=== PATIENT | female | born 1960 | race Caucasian/White ===

== ENCOUNTER → 2020-08-31 | Outpatient (CLI) | payer MEDICAID | END | disposition home or self-care (01) | LOC: LAB 10:30 | PROVIDERS: ATTEND Thoracic Surgery (Cardiothoracic Vascular Surgery) | DX: Z01.812 Encounter for preprocedural laboratory examination (principal); Z20.822 Contact with and (suspected) exposure to COVID-19 | CPT/HCPCS: 87426 ==

== ENCOUNTER 2020-09-03 05:26 | Inpatient (IN) | payer MEDICAID ==
[2020-09-03] VITALS (32 sets, daily range): BP systolic 0–122; BP diastolic 0–64
[~2020-09-03] VITALS: Ht 162.6 cm; Wt 80.7 kg
[2020-09-03 05:23] LABS: CLARITY URINE CLEAR (CLEAR); COLOR URINE DARK YELLOW (YELLOW); KETONES URINE NEGATIVE (NEGATIVE); LEUKOCYTE ESTERASE URINE 1+ (NEGATIVE); NITRITE URINE POSITIVE (NEGATIVE); OCCULT BLOOD URINE NEGATIVE (NEGATIVE); PH URINE 5.5 (4.5-8.0); PROTEIN URINE TRACE (NEGATIVE); SPECIFIC GRAVITY URINE 1.016 (1.005-1.030)
[2020-09-03] MEDS ORDERED: ACETAMINOPHEN 500MG TABLET ONE (05:51)
[2020-09-03] MEDS ORDERED: AMINOCAPROIC ACID 5,000 MG in SODIUM CHLORIDE 0.9% 230 ML IV PRN (06:00)
[2020-09-03] MEDS ORDERED: DOPAMINE 400 MG PREMIX 250 ML IV PRN (06:00)
[2020-09-03] MEDS ORDERED: CEFAZOLIN 2,000 MG in DEXT 5% WATER 100 ML IV PRN (06:00)
[2020-09-03] MEDS ORDERED: INSULIN REGULAR (DRIP) 100 UNITS in SODIUM CHLORIDE 0.9% 99 ML IV PRN (06:00)
[2020-09-03] MEDS ORDERED: EPINEPHRINE 5 MG in DEXT 5% WATER 245 ML IV PRN (06:00)
[2020-09-03] MEDS ORDERED: NOREPINEPHRINE 8 MG in DEXT 5% WATER 242 ML IV PRN (06:00)
[2020-09-03] MEDS ORDERED: DOBUTAMINE 250 MG PREMIX 250 ML IV PRN (06:00)
[2020-09-03] MEDS ORDERED: DEL NIDO ELECTROLYTE-S(PH 7.4) 1,000 ML IV PRN ×2 (06:00)
[2020-09-03] MEDS ORDERED: NICARDIPINE 40 MG/200 ML PREMIX 200 ML IV PRN (06:00)
[2020-09-03] MEDS ORDERED: POLYMYXIN B SULFATE 500000 UNITS/VIAL ONE ×2 (06:16→07:31)
[2020-09-03] MEDS ORDERED: THROMBIN (BOVINE) 5000 UNITS/VIAL TOP ONE ×2 (06:16→12:50)
[2020-09-03] MEDS ORDERED: HEPARIN 1000 UNITS/ML 10ML ONE ×3 (06:48→08:40)
[2020-09-03] MEDS ORDERED: LEVOFLOXACIN 500MG PREMIX 100 ML IV ONE (07:13)
[2020-09-03] MEDS ORDERED: ETOMIDATE 2MG/ML 10ML VIAL IV ONE (07:17)
[2020-09-03] MEDS ORDERED: FENTANYL CITRATE/PF 50MCG/ML 5ML VIAL ONE (07:18)
[2020-09-03] MEDS ORDERED: PROPOFOL 200MG/20ML VIAL IV ONE (07:19)
[2020-09-03] MEDS ORDERED: ROCURONIUM BROMIDE 10MG/ML VIAL 5ML IV ONE (07:20)
[2020-09-03] MEDS ORDERED: SODIUM CHLORIDE 0.9% 10ML VIAL ONE (07:21)
[2020-09-03] MEDS ORDERED: PHENYLEPHRINE HCL 10 MG/ML 1ML (IV VIAL) IV ONE ×3 (07:22→14:52)
[2020-09-03] MEDS ORDERED: LABETALOL HCL 5MG/ML VIAL 20ML IV ONE (07:28)
[2020-09-03] MEDS ORDERED: MIDAZOLAM HCL 2 MG/2 ML VIAL ONE ×2 (07:28→10:20)
[2020-09-03] MEDS ORDERED: VANCOMYCIN 1500MG in DEXTROSE 5% WATER 250ML IV NR (07:30)
[2020-09-03] MEDS ORDERED: LIDOCAINE HCL 2% 5ML SYRINGE IV ONE ×3 (07:43→13:02)
[2020-09-03] MEDS ORDERED: CALCIUM CHLORIDE 1GM/10ML SYR IV ONE ×2 (08:10→13:46)
[2020-09-03] MEDS ORDERED: MANNITOL 20% (20GM/100ML) BAG 500ML PREMIX IV ONE (08:10)
[2020-09-03] MEDS ORDERED: AMINOCAPROIC ACID 250 MG/ML 20ML VIAL ONE ×2 (08:10→09:08)
[2020-09-03] MEDS ORDERED: MAGNESIUM SULFATE 5GM/10ML VIAL IV ONE (08:10)
[2020-09-03] MEDS ORDERED: FUROSEMIDE 20MG/2ML VIAL ONE (08:10)
[2020-09-03] MEDS ORDERED: SODIUM BICARBONATE 8.4% 1 MEQ/ML 50ML SYR IV ONE ×2 (08:10→11:35)
[2020-09-03] MEDS ORDERED: ALBUMIN HUMAN 25GM/100ML (25%) IV ONE (08:10)
[2020-09-03] MEDS ORDERED: POTASSIUM CHLORIDE 40MEQ/20ML INJ IV ONE (08:10)
[2020-09-03] MEDS ORDERED: HEPARIN 10,000 UNITS/ML VIAL ONE (08:10)
[2020-09-03] MEDS ORDERED: MELA10TA2 PO (08:58)
[2020-09-03] MEDS ORDERED: TRIA1TAB92 PO (08:58)
[2020-09-03] MEDS ORDERED: HYDR-4350 PO (08:58)
[2020-09-03] MEDS ORDERED: AMLO5TAB88 PO (08:58)
[2020-09-03] MEDS ORDERED: PHEN95TA25 PO (08:58)
[2020-09-03] MEDS ORDERED: LEVO500T89 PO (08:58)
[2020-09-03] MEDS ORDERED: TRIAM/HCTZ PO (09:00)
[2020-09-03] MEDS ORDERED: VECURONIUM BROMIDE 10 MG/VIAL IV ONE (09:20)
[2020-09-03] MEDS ORDERED: ALBUMIN HUMAN 12.5G/250ML (5%) IV ONE ×2 (10:20→12:27)
[2020-09-03] MEDS ORDERED: POTASSIUM CHLORIDE 10MEQ IN WATER 50ML PREMIX IV ONE (10:20)
[2020-09-03] MEDS ORDERED: ESMOLOL HCL 10MG/ML 10ML VIAL IV ONE (10:20)
[2020-09-03] MEDS ORDERED: PROPOFOL 10MG/ML 100ML 100 ML IV ONE (11:36)
[2020-09-03] MEDS ORDERED: KCL 10MEQ/50ML PREMIX 100 ML IV PRN (11:45)
[2020-09-03] MEDS ORDERED: DEXTROSE 50% WATER 50ML SYRINGE IV PRN ×2 (11:45)
[2020-09-03] MEDS ORDERED: BLOOD SUGAR DIAGNOSTIC STRIP TEST SCH (11:45)
[2020-09-03] MEDS ORDERED: KCL 10MEQ/50ML PREMIX 150 ML IV PRN (11:45)
[2020-09-03] MEDS ORDERED: DEL NIDO ELECTROLYTE-S(PH 7.4) 1,000 ML IV SCH (12:00)
[2020-09-03] MEDS ORDERED: AMIODARONE HCL 50MG/ML 3ML VIAL IV ONE (13:01)
[2020-09-03] MEDS ORDERED: PROTAMINE SULFATE 10MG/ML VIAL 25ML IV ONE (13:02)
[2020-09-03] MEDS ORDERED: INSULIN REGULAR (DRIP) 100 UNITS in SODIUM CHLORIDE 0.9% 99 ML IV SCH (13:30)
[2020-09-03] MEDS ORDERED: SKIN ADHESIVE 0.7 GM EA TOP ONE (13:48)
[2020-09-03 15:38] LABS: CHLORIDE 108 mEq/L (98-107); HEMATOCRIT. 24.1 % (36.0-48.0); HEMOGLOBIN. 8.1 g/dL (12.0-16.0); MEAN CORPUSCULAR HEMOGLOBIN 28.6 pg (28.0-32.0); MEAN PLATELET VOLUME 8.5 fl (7.4-10.4); PLATELET 238 x1000/uL (130-400); RED BLOOD CELL COUNT 2.84 mill/uL (4.2-5.4); RED CELL DISTRIBUTION WIDTH 14.8 % (11.6-14.6)
[2020-09-03 15:56] LABS: INR 1.1; PARTIAL THROMBOPLASTIN TIME 27.4 sec (23.4-31.0); PROTHROMBIN TIME 11.9 sec (9.6-11.0)
[2020-09-03] MEDS: BLOOD SUGAR DIAGNOSTIC STRIP TEST SCH ×8 (16:14→22:59)
[2020-09-03] MEDS: KCL 10MEQ/50ML PREMIX 200 ML IV PRN (16:14)
[2020-09-03 16:15] LABS: BG BASE EXCESS 0.4 mmol/L (-2.0-2.0); BG CARBOXYHEMOGLOBIN 0.3 % (0.5-1.5); BG DEOXYHEMOGLOBIN 3.7 % (0.0-5.0); BG FRACTION INSPIRED OXYGEN 60; BG HCO3 ACT 26.3 mmol/L (22.0-26.0); BG METHEMOGLOBIN 0.6 % (0.0-1.5); BG OXYGEN SATURATION 96.3 % (92.0-98.5); BG OXYHEMOGLOBIN 95.4 % (94.0-97.0); BG PCO2 48.7 mmHg (35.0-45.0); BG PH 7.351 (7.350-7.450); BG PO2 95.5 mmHg (75.0-100.0); BG SAMPLE SITE ALINE; BG TOTAL HEMOGLOBIN 9.4 g/dL (12.0-18.0); BG VENT MODE VENT - AC
[2020-09-03] MEDS ORDERED: OXYCODONE HCL/ACETAMINOPHEN 5/325MG TABLET PO PRN ×2 (16:15)
[2020-09-03] MEDS ORDERED: ONDANSETRON HCL 4MG/2ML INJ IV PRN (16:15)
[2020-09-03] MEDS ORDERED: MAGNESIUM 2 G PREMIX 50 ML IV PRN (16:15)
[2020-09-03] MEDS ORDERED: MORPHINE SULFATE 2 MG/ML CPJ (NOT FOR IM USE) IV PRN (16:15)
[2020-09-03] MEDS: MAGNESIUM HYDROXIDE 400MG/5ML 30ML UDC PO SCH ×2 (16:15→20:26)
[2020-09-03] MEDS ORDERED: SODIUM CHLORIDE 0.9% 500 ML IV PRN (16:15)
[2020-09-03] MEDS ORDERED: MAGNESIUM SULFATE 3 GM in DEXT 5% WATER 100 ML IV PRN (16:15)
[2020-09-03] MEDS ORDERED: MAGNESIUM 1 G PREMIX 100 ML IV PRN (16:15)
[2020-09-03] MEDS ORDERED: DEXT 5%/0.45% NACL 1000ML 1,000 ML IV SCH ×2 (16:15→20:08)
[2020-09-03] MEDS: VASOPRESSIN 20 UNITS in SODIUM CHLORIDE 0.9% 100 ML IV PRN ×2 (16:40→21:04)
[2020-09-03] MEDS: MILRINONE 20MG-DEXT 5% PREMIX 100 ML IV SCH ×2 (16:41→21:05)
[2020-09-03 16:54] LABS: PLATELET ESTIMATE NORMAL
[2020-09-03] MEDS: ALBUMIN HUMAN 12.5G/250ML (5%) IV PRN ×2 (17:00→18:17)
[2020-09-03] MEDS ORDERED: DOCUSATE SODIUM 100MG CAPSULE PO SCH (17:00)
[2020-09-03 17:06] LABS: BG BASE EXCESS 1.6 mmol/L (-2.0-2.0); BG CARBOXYHEMOGLOBIN 0.1 % (0.5-1.5); BG DEOXYHEMOGLOBIN 2.3 % (0.0-5.0); BG FRACTION INSPIRED OXYGEN 60; BG HCO3 ACT 27.3 mmol/L (22.0-26.0); BG METHEMOGLOBIN 0.6 % (0.0-1.5); BG OXYGEN SATURATION 97.7 % (92.0-98.5); BG PCO2 48.5 mmHg (35.0-45.0); BG PH 7.368 (7.350-7.450); BG PO2 119.6 mmHg (75.0-100.0); BG SAMPLE SITE ALINE; BG TOTAL HEMOGLOBIN 9.4 g/dL (12.0-18.0); BG VENT MODE VENT - AC
[2020-09-03 18:02] LABS: BG BASE EXCESS 0.4 mmol/L (-2.0-2.0); BG CARBOXYHEMOGLOBIN 0.3 % (0.5-1.5); BG FRACTION INSPIRED OXYGEN 50; BG HCO3 ACT 25.4 mmol/L (22.0-26.0); BG METHEMOGLOBIN 0.7 % (0.0-1.5); BG PCO2 42.7 mmHg (35.0-45.0); BG PH 7.393 (7.350-7.450); BG PO2 101.9 mmHg (75.0-100.0); BG SAMPLE SITE ALINE; BG TOTAL HEMOGLOBIN 9.2 g/dL (12.0-18.0); BG VENT MODE VENT - AC
[2020-09-03] MEDS ORDERED: ALBUMIN HUMAN 12.5G/250ML (5%) IV NR (18:15)
[2020-09-03] MEDS ORDERED: CALCIUM CHLORIDE 5,000 MG in DEXT 5% WATER 500 ML IV NR (19:00)
[2020-09-03 19:41] LABS: HEMATOCRIT. 23.3 % (36.0-48.0); HEMOGLOBIN. 7.8 g/dL (12.0-16.0); MEAN CORPUSCULAR HEMOGLOBIN 28.5 pg (28.0-32.0); MEAN CORPUSCULAR VOLUME 85.3 fL (81.0-99.0); PLATELET 244 x1000/uL (130-400); RED BLOOD CELL COUNT 2.73 mill/uL (4.2-5.4); RED CELL DISTRIBUTION WIDTH 14.7 % (11.6-14.6)
[2020-09-03 19:52] LABS: BG BASE EXCESS -0.6 mmol/L (-2.0-2.0); BG CARBOXYHEMOGLOBIN 0.2 % (0.5-1.5); BG DEOXYHEMOGLOBIN 1.6 % (0.0-5.0); BG FRACTION INSPIRED OXYGEN 50; BG HCO3 ACT 23.6 mmol/L (22.0-26.0); BG METHEMOGLOBIN 0.7 % (0.0-1.5); BG OXYGEN SATURATION 98.4 % (92.0-98.5); BG OXYHEMOGLOBIN 97.5 % (94.0-97.0); BG PCO2 36.3 mmHg (35.0-45.0); BG PO2 148.1 mmHg (75.0-100.0); BG SAMPLE SITE ALINE; BG TOTAL HEMOGLOBIN 8.4 g/dL (12.0-18.0); BG VENT MODE VENT - AC
[2020-09-03] MEDS: IPRATROPIUM/ALBUTEROL 0.5-3(2.5)MG/3ML NEB HHN SCH (20:32)
[2020-09-03 21:23] LABS: HEMATOCRIT. 23.2 % (36.0-48.0); HEMOGLOBIN. 7.8 g/dL (12.0-16.0); MEAN CORPUSCULAR HEMOGLOBIN 28.8 pg (28.0-32.0); MEAN CORPUSCULAR VOLUME 85.8 fL (81.0-99.0); MEAN PLATELET VOLUME 9.6 fl (7.4-10.4); PLATELET 247 x1000/uL (130-400); RED CELL DISTRIBUTION WIDTH 15.3 % (11.6-14.6)
[2020-09-03 21:54] LABS: BG CARBOXYHEMOGLOBIN 0.3 % (0.5-1.5); BG DEOXYHEMOGLOBIN 1.1 % (0.0-5.0); BG FRACTION INSPIRED OXYGEN 40; BG HCO3 ACT 24.6 mmol/L (22.0-26.0); BG METHEMOGLOBIN 0.6 % (0.0-1.5); BG OXYGEN SATURATION 98.9 % (92.0-98.5); BG PCO2 34.8 mmHg (35.0-45.0); BG PH 7.468 (7.350-7.450); BG PO2 218.8 mmHg (75.0-100.0); BG SAMPLE SITE ALINE; BG TOTAL HEMOGLOBIN 8.4 g/dL (12.0-18.0); BG VENT MODE VENT - AC
[2020-09-03] MEDS: PIPERACILLIN/TAZOBACTAM 3.375 G in DEXT 5% WATER 100 ML IV SCH (21:58)
[2020-09-03] MEDS: ACETAMINOPHEN 325MG TABLET PO PRN (22:32)
[2020-09-03] MEDS: EPINEPHRINE 5 MG in DEXT 5% WATER 245 ML IV PRN (23:00)
[2020-09-03] MEDS ORDERED: MILRINONE 20MG-DEXT 5% PREMIX 100 ML IV PRN (23:30)
[2020-09-03 23:31] LABS: PLATELET ESTIMATE NORMAL
[2020-09-03 23:53] LABS: PLATELET ESTIMATE NORMAL
[2020-09-04] VITALS (30 sets, daily range): BP systolic 73–143; BP diastolic 32–77
[2020-09-04] MEDS: IPRATROPIUM/ALBUTEROL 0.5-3(2.5)MG/3ML NEB HHN SCH ×2 (00:18→04:16)
[2020-09-04] MEDS: MAGNESIUM HYDROXIDE 400MG/5ML 30ML UDC PO SCH ×2 (00:27→04:16)
[2020-09-04] MEDS: BLOOD SUGAR DIAGNOSTIC STRIP TEST SCH ×6 (01:00→05:00)
[2020-09-04 02:25] LABS: HEMATOCRIT. 26.4 % (36.0-48.0); HEMOGLOBIN. 8.8 g/dL (12.0-16.0); LYMPHOCYTES % 8.8 % (20.0-50.0); MEAN CORPUSCULAR HEMOGLOBIN 28.4 pg (28.0-32.0); MEAN CORPUSCULAR VOLUME 85.6 fL (81.0-99.0); MEAN PLATELET VOLUME 9.9 fl (7.4-10.4); MONOCYTES % 9.4 % (2.0-8.0); NEUTROPHILS % 81.8 % (40.0-76.0); PLATELET 199 x1000/uL (130-400); RED BLOOD CELL COUNT 3.08 mill/uL (4.2-5.4); RED CELL DISTRIBUTION WIDTH 14.6 % (11.6-14.6)
[2020-09-04] MEDS: KCL 10MEQ/50ML PREMIX 200 ML IV PRN (03:57)
[2020-09-04] MEDS: PIPERACILLIN/TAZOBACTAM 3.375 G in DEXT 5% WATER 100 ML IV SCH (03:58)
[2020-09-04] MEDS: ACETAMINOPHEN 325MG TABLET PO PRN (05:40)
[2020-09-04 05:41] LABS: BG BASE EXCESS 1.9 mmol/L (-2.0-2.0); BG CARBOXYHEMOGLOBIN 0.3 % (0.5-1.5); BG DEOXYHEMOGLOBIN 2.2 % (0.0-5.0); BG FRACTION INSPIRED OXYGEN 35; BG HCO3 ACT 25.7 mmol/L (22.0-26.0); BG METHEMOGLOBIN 0.5 % (0.0-1.5); BG OXYGEN SATURATION 97.8 % (92.0-98.5); BG SAMPLE SITE ALINE; BG TOTAL HEMOGLOBIN 9.3 g/dL (12.0-18.0); BG VENT MODE VENT - SIMV
[2020-09-04 06:48] LABS: BG BASE EXCESS -2.9 mmol/L (-2.0-2.0); BG CARBOXYHEMOGLOBIN 0.1 % (0.5-1.5); BG FRACTION INSPIRED OXYGEN 100; BG HCO3 ACT 21.4 mmol/L (22.0-26.0); BG METHEMOGLOBIN 0.2 % (0.0-1.5); BG OXYHEMOGLOBIN 93.7 % (94.0-97.0); BG PCO2 35.2 mmHg (35.0-45.0); BG PH 7.402 (7.350-7.450); BG PO2 71.8 mmHg (75.0-100.0); BG SAMPLE SITE ALINE; BG TOTAL HEMOGLOBIN 9.8 g/dL (12.0-18.0); BG VENT MODE VENT - AC
[2020-09-04] MEDS: VASOPRESSIN 20 UNITS in SODIUM CHLORIDE 0.9% 100 ML IV PRN (07:03)
[2020-09-04] MEDS: EPINEPHRINE 5 MG in DEXT 5% WATER 245 ML IV PRN (07:04)
[2020-09-04] MEDS ORDERED: AMIODARONE HCL 150 MG in DEXT 5% WATER 100 ML IV ONE (07:15)
[2020-09-04] MEDS ORDERED: AMIODARONE HCL 150 MG in DEXT 5% WATER 100 ML IV SCH (07:15)
[2020-09-04] MEDS ORDERED: ALBUMIN HUMAN 12.5G/250ML (5%) IV NR (07:45)
[2020-09-04 08:00] LABS: BG BASE EXCESS 3.8 mmol/L (-2.0-2.0); BG CARBOXYHEMOGLOBIN 0.3 % (0.5-1.5); BG DEOXYHEMOGLOBIN 15.4 % (0.0-5.0); BG FRACTION INSPIRED OXYGEN 99.8; BG METHEMOGLOBIN 0.4 % (0.0-1.5); BG OXYGEN SATURATION 84.5 % (92.0-98.5); BG OXYHEMOGLOBIN 83.9 % (94.0-97.0); BG PCO2 47.1 mmHg (35.0-45.0); BG PH 7.407 (7.350-7.450); BG PO2 51.3 mmHg (75.0-100.0); BG SAMPLE SITE ALINE; BG TOTAL HEMOGLOBIN 8.3 g/dL (12.0-18.0); BG VENT MODE BAGGING
[2020-09-04] MEDS ORDERED: EPINEPHRINE 0.1MG/ML (1:10,000) 10ML SYR ONE (08:02)
[2020-09-04] MEDS ORDERED: FAMOTIDINE 20MG/2ML VIAL IV SCH (09:00)
== END 2020-09-04 07:55 | DRG 163 ==
LOC: OR 05:26 → CVICU 05:27 → EDUNIT# 07:30
PROVIDERS: ADMIT Thoracic Surgery (Cardiothoracic Vascular Surgery); ATTEND Thoracic Surgery (Cardiothoracic Vascular Surgery)
PROC: 30233M1 Transfusion of Nonautologous Plasma Cryoprecipitate into Peripheral Vein, Percutaneous Approach (ICD-10-PCS; 2020-09-03)
PROC: 30233N1 Transfusion of Nonautologous Red Blood Cells into Peripheral Vein, Percutaneous Approach (ICD-10-PCS; 2020-09-03)
PROC: 30233R1 Transfusion of Nonautologous Platelets into Peripheral Vein, Percutaneous Approach (ICD-10-PCS; 2020-09-03)
PROC: 02RF0JZ Replacement of Aortic Valve with Synthetic Substitute, Open Approach (ICD-10-PCS; 2020-09-03)
PROC: 5A1221Z Performance of Cardiac Output, Continuous (ICD-10-PCS; 2020-09-03)
PROC: 3E080GC Introduction of Other Therapeutic Substance into Heart, Open Approach (ICD-10-PCS; 2020-09-03)
PROC: 0W9900Z Drainage of Right Pleural Cavity with Drainage Device, Open Approach (ICD-10-PCS; 2020-09-03)
PROC: 5A12012 Performance of Cardiac Output, Single, Manual (ICD-10-PCS; principal; 2020-09-04)
PROC: 5A1935Z Respiratory Ventilation, Less than 24 Consecutive Hours (ICD-10-PCS; 2020-09-04)
PROC: 0BH17EZ Insertion of Endotracheal Airway into Trachea, Via Natural or Artificial Opening (ICD-10-PCS; 2020-09-04)
DX: I35.0 Nonrheumatic aortic (valve) stenosis (principal); I46.9 Cardiac arrest, cause unspecified; E87.0 Hyperosmolality and hypernatremia; M10.9 Gout, unspecified; D72.825 Bandemia; E87.6 Hypokalemia; D64.9 Anemia, unspecified; I10 Essential (primary) hypertension; B07.9 Viral wart, unspecified; I49.01 Ventricular fibrillation
CPT/HCPCS: 36415; 36600; 71045; 80048; 80053; 81003; 82375; 82805; 82962; 83735; 84100; 84145; 85025; 85044; 85347; 85384; 85520; 86850; 86900; 86920; 86927; 87070; 87075; 88304; 88311; 93005; 93312; C1725; C1729; C1751; C1758; J0282; J1644; J1815; J1940; J1956; J2250; J2260; J2370; J2543; J2704; J2720; J3010; J3370; J3475; J3480; J3490; J7050; J7060; L3908; P9016; P9017; P9034; P9041; P9047